=== PATIENT | female | born 1950 ===

== ENCOUNTER 2024-08-16 06:00 | Outpatient (CLI) | payer OTHER ==
[~2024-08-16] VITALS: Ht 157.5 cm; Wt 61.2 kg
[2024-08-16 11:41] LABS: HEMATOCRIT 39.5 % (36.0-45.00); HEMOGLOBIN 13.1 g/dL (12.0-15.00); MEAN CELL VOLUME 86.9 fL (80.00-100.00); MEAN CORPUSCULAR HEMOGLOBIN 28.9 pg (27.00-32.0); MEAN CORPUSCULAR HGB CONC 33.2 g/dl (32.0-36.0); PLATELET COUNT 333 K/uL (150-450); RED BLOOD COUNT 4.54 M/uL (4.00-6.00); RED CELL DISTRIBUTION WIDTH 13.4 % (11.5-14.5)
[2024-08-16 11:53] LABS: PH,URINE 6.5 (5.0-8.0); URINE APPEARANCE Clear; URINE BILIRRUBIN Negative (NEGATIVE); URINE BLOOD Negative; URINE COLOR Yellow; URINE GLUCOSE Negative (NEGATIVE); URINE KETONE Negative (NEGATIVE); URINE LEUKOCYTE Negative; URINE NITRATE Negative; URINE PROTEIN Negative (NEGATIVE); URINE UROBILINOGEN 0.2 E.U./dl
[2024-08-16 12:10] LABS: INR 0.97; PARTIAL THROMBOPLASTIN TIME 27.1 SECONDS (22.0-34.0); PROTHROMBIN TIME 10.6 SECONDS (9.0-11.5)
[2024-08-16 12:42] LABS: URINE BACTERIA 2.4 uL (0.0-1933); URINE EPITHELIAL CELLS 0.6 uL (0.0-38.8); URINE WBC 0.7 uL (0.0-23.2)
[2024-08-16 13:00] VITALS: BP 177/78
[2024-08-16] MEDS ORDERED: VALSARTAN320 MG PO (13:01)
[2024-08-16] MEDS ORDERED: BUSPIRONE 5 MG (13:02)
[2024-08-16] MEDS ORDERED: LORAZEPAM0.5 MG PO (13:02)
[2024-08-16] MEDS ORDERED: ESCITALOPRAM 20 MG (13:02)
[2024-08-16] MEDS ORDERED: ZOLPIDEM 5MG (13:03)
[2024-08-16 13:11] LABS: ALBUMIN 3.7 gm/dL (3.4-5.0); BILIRUBIN TOTAL 0.36 mg/dL (0.3-1.2); CALCIUM 9.5 mg/dL (8.5-10.1); CHOL HDL RATIO 4.5 (0-5.0); CREATININE SERUM 0.51 mg/dL (0.55-1.02); GFR 118.21; POTASSIUM 4.37 mEq/L (3.5-5.1); TOTAL PROTEIN 7.7 gm/dL (6.4-8.2)
[2024-08-16 13:21] LABS: RH POSITIVE
== END 2024-08-16 06:01 | disposition home or self-care (01) ==
LOC: RAD 06:00 → EDSTATUS 08-23 09:00 → SURH 08-23 09:00
PROVIDERS: ATTEND Orthopaedic Surgery
DX: R05.2 Subacute cough (principal); D64.9 Anemia, unspecified; R10.9 Unspecified abdominal pain; Z79.01 Long term (current) use of anticoagulants; N39.0 Urinary tract infection, site not specified; E78.5 Hyperlipidemia, unspecified; Z20.828 Contact with and (suspected) exposure to other viral communicable diseases; Z03.818 Encounter for observation for suspected exposure to other biological agents ruled out; M17.11 Unilateral primary osteoarthritis, right knee